=== PATIENT | female | born 1990 | race Caucasian/White ===

== ENCOUNTER 2023-04-03 14:59 | Emergency (ER) | payer BC ==
[~2023-04-03] VITALS: Ht 172.7 cm; Wt 77.1 kg
[2023-04-03 15:05] VITALS: BP_SYST 109; PULSE 117; RESP 18; TEMP 97.7; O2SAT 95
[2023-04-03 15:48] LABS: BILIRUBIN,URINE NEGATIVE (NEGATIVE); BLOOD, URINE NEGATIVE (NEGATIVE); CLARITY/URINE CLEAR (CLEAR); GLUCOSE,URINE 2+ (NEGATIVE); KETONES,URINE NEGATIVE (NEGATIVE); LEUKOCYTE ESTERASE ,URINE NEGATIVE (NEGATIVE); NITRITE, URINE POSITIVE (NEGATIVE); PH,URINE 5.5 (5.0-8.0); PROTEIN URINE NEGATIVE (NEGATIVE); UROBILINOGEN,URINE 0.2 (0.2-1.0)
[2023-04-03] MEDS ORDERED: cefTRIAXone 1 GM VIAL ONE (15:54)
[2023-04-03] MEDS ORDERED: KETOROLAC TROMETHAMINE 30 MG VIAL ONE (15:54)
[2023-04-03] MEDS ORDERED: CEPH-548 PO (15:56)
[2023-04-03] MEDS ORDERED: ONDA-8 TL (15:56)
[2023-04-03] MEDS ORDERED: ACET1TAB93 PO (15:58)
[2023-04-03] MEDS ORDERED: KETOROLAC TROMETHAMINE 30 MG VIAL IM ONE (16:00)
[2023-04-03] MEDS ORDERED: cefTRIAXone 1 GM in LIDOCAINE 1%, 20 ML MDV 2.1 ML IM ONE (16:00)
[2023-04-03 16:02] VITALS: BP_SYST 109; PULSE 117; RESP 18; TEMP 97.7; O2SAT 95
[2023-04-03 16:06] LABS: BACTERIA,URINE FEW /HPF (None Seen); COLOR,URINE YELLOW (YELLOW); RBC,URINE 0-3 /HPF (0-3)
== END 2023-04-03 16:02 | disposition home or self-care (01) ==
LOC: SED 14:59
DX: N10 Acute pyelonephritis (principal); R30.0 Dysuria; R35.0 Frequency of micturition; R10.9 Unspecified abdominal pain; Z79.899 Other long term (current) drug therapy
CPT/HCPCS: 99284; 81000; 87086; 96372; J0696; J1885